=== PATIENT | male | born 1970 | race Two or more races ===

== ENCOUNTER 2023-01-31 13:58 | Emergency (ER) | payer MEDICAID ==
[~2023-01-31] VITALS: Ht 182.9 cm; Wt 86.2 kg
[2023-01-31 16:00] VITALS: BP 115/79
[2023-01-31] MEDS ORDERED: ACETAMINOPHEN 500 MG TAB PO ONE (17:15)
[2023-01-31] MEDS ORDERED: ACET-1080 PO (17:31)
== END 2023-01-31 17:35 | disposition home or self-care (01) ==
LOC: ER 13:58
DX: S01.01XA Laceration without foreign body of scalp, initial encounter (principal); R51.9 Headache, unspecified; W18.00XA Striking against unspecified object with subsequent fall, initial encounter; Y93.67 Activity, basketball; Y92.89 Other specified places as the place of occurrence of the external cause; Y99.8 Other external cause status
CPT/HCPCS: 12002; 70450